=== PATIENT | male | born 1980 | race Caucasian/White ===

== ENCOUNTER 2021-03-24 14:32 | Emergency (ER) | payer OTHER, BC, SELFPAY ==
--- NOTE | ~2021-03-24 | XR_ITS ---
XR elbow RT min 3V 03/24/2021 14:57 INDICATION: Right elbow pain after injury PROCEDURE: 4 views right elbow COMPARISON: No prior studies for comparison. FINDINGS: Fracture, dislocation or subluxation is not identified. The soft tissues appear within norm al limits. No foreign bodies are identified. IMPRESSION: 1: NO ACUTE BONE OR JOINT ABNORMALITY IDENTIFIED. Reviewed, dictated and finalized at location A.
[2021-03-24 14:46] VITALS: BP 134/87; PULSE 78; RESP 14; TEMP 36.6; O2SAT 98
[2021-03-24 15:26] VITALS: BP 134/87; PULSE 78; RESP 14; TEMP 36.6; O2SAT 98
--- NOTE | 2021-03-24 15:45 | ED.UPPEXIN ---
HPI - Extremity Injury (Upper) General Chief Complaint: Extremity Injury, Upper Stated Complaint: right elbow pain Time Seen by Provider: 03/24/21 15:27 Source: patient Mode of arrival: ambulatory Limitations: no limitations History of Present Illness HPI narrative: Patient is a 40 year old male who presents with right elbow pain. He reports 4 wheeling to pain and injuring elbow approximately 3 days ago. He reports pain with range of motion. Denies swelling or bruising. Reports difficulty with fish warden and weakness on the right hand. He reports tingling sensation to right hand. Denies other injuries. Patient has no significant medical history. He denies taking [id number] medications prior to arrival. MD complaint: injury to: left and elbow Related Data Allergies Allergy/AdvReac Type Severity Reaction Status Date / Time No Known Allergies Allergy Verified 03/24/21 16:49 Review of Systems Review of Systems: Narrative: CONSTITUTIONAL: Denies fever, chills, or sweats. EYES: Denies visual changes, redness, or discharge. ENT: Denies rhinorrhea, congestion, sore throat, or otalgia. CARDIOVASCULAR: Denies chest pain, palpitations, or edema. RESPIRATORY: Denies cough or dyspnea. GASTROINTESTINAL: Denies abdominal pain, nausea, vomiting, or diarrhea. GENITOURINARY: Denies dysuria or hematuria. SKIN: Denies rash or itching. MUSCULOSKELETAL: Right elbow pain NEUROLOGIC: Denies headache, numbness, dizziness, or weakness. PSYCHIATRIC: Denies anxiety or depression. PMFSH Past Medical History Medical History Asthma Surgical History Surgical History No significant past surgical history Family History Family History (Updated 03/24/21 @ 15:48 by DORA Chavez) Other Hypertension Social History Social History (Updated 03/24/21 @ 15:49 by DORA Chavez) Smoking status: Current every day smoker Tobacco type: cigarettes Alcohol intake: never Substance use: current Substance use type: marijuana Living arrangements: with family Occupation/Education: occupation Gender identity (if verbalized by the patient): Male Exam Narrative: Exam Narrative: GENERAL: Well-appearing, well-nourished, and in no acute distress. HEAD: Normocephalic, atraumatic. EYES: EOMI. No redness or drainage. Conjunctiva are normal. ENT: Mucous membranes pink and moist. CHEST: No respiratory distress. Clear to auscultation. HEART: Regular rate and rhythm. No murmur appreciated. Normal peripheral pulses. GI: Soft, nontender without rebound, or guarding. EXTREMITIES: Right arm normal range of motion. No edema. Distal sensation intact, good capillary refill. Decreased fish warden SKIN: Warm, dry, no rash. NEURO: No focal deficits. Alert and oriented x3. Gait steady. PSYCH: Normal affect. No signs of depression or anxiety. Course Vital Signs Vital signs: Vital Signs Temperature 36.6 C 03/24/21 14:46 Pulse Rate 78 03/24/21 14:46 Respiratory Rate 14 03/24/21 14:46 Blood Pressure 134/87 03/24/21 14:46 Pulse Oximetry 98 03/24/21 14:46 Temperature 36.6 C 03/24/21 15:26 Pulse Rate 78 03/24/21 15:26 Respiratory Rate 14 03/24/21 15:26 Blood Pressure 134/87 03/24/21 15:26 Pulse Oximetry 98 03/24/21 15:26 Reviewed. Patient has been instructed to follow-up with his PCP regarding his blood pressure. MDM - Extremity Injury (Upper) MDM Narrative Medical decision making narrative: Patient' xray shows no osseous abnormality. Discussed with patient possible ulnar neuropathy related to injury. Discussed use of nsaids, rest and following up for nerve conduction studies if symptoms do not improve. Patient is aware of red flags in which to return. Patient is stable for discharge to home with outpatient follow up. Differential Diagnosis Differential diagnosis: Likely sprain and strain of
== END 2021-03-24 16:54 | disposition home or self-care (01) ==
PROVIDERS: Emergency Provider Nurse Practitioner
DX: M25.521 Pain in right elbow (principal); J45.909 Unspecified asthma, uncomplicated; F17.210 Nicotine dependence, cigarettes, uncomplicated; R03.0 Elevated blood-pressure reading, without diagnosis of hypertension; V86.55XA Driver of 3- or 4- wheeled all-terrain vehicle (ATV) injured in nontraffic accident, initial encounter
CPT/HCPCS: 73080; 99283